=== PATIENT | male | born 1940 | race Caucasian/White ===

== ENCOUNTER 2018-10-28 12:11 | Inpatient (IN) | payer MEDICARE, BC ==
[2018-10-28 14:18] LABS: Glucose,Whole Blood 122 mg/dL (75-99)
[2018-10-28] MEDS ORDERED: NALOXONE 0.4 MG/ML 1 ML VIAL IV PRN (14:34)
[2018-10-28] MEDS ORDERED: SODIUM CHLORIDE 0.9% 1,000 ML IV SCH (14:45)
[2018-10-28] MEDS ORDERED: DEXTROSE 5% IN WATER 100 ML with AMIODARONE 150 MG IV ONE (14:45)
[2018-10-28] MEDS ORDERED: AMIODARONE 360 MG in DEXTROSE 5% IN WATER 200 ML IV ONE ×2 (15:00)
[2018-10-28 15:29] VITALS: BMI 26.5
[2018-10-28] MEDS ORDERED: LORATADINE 10 MG TAB PO PRN (17:02)
--- NOTE | 2018-10-28 17:04 | P.PCN ---
Preoperative Diagnosis: Biventricular ICD interrogation with reprogramming Indication for the procedure sustained ventricular tachycardia 140 beats a minute below the detection rate for VT [employer] device model G447 biventricular ICD P waves 2 mV pacing impedance 620 ohms, pacing threshold 1 V at 0.4 ms RV is paced, 529 ohms, pacing threshold 0.7 V at 0.4 ms LV is paced, pacing impedance 549 ohms, threshold 1.2 V at 1 ms Patient had slow ventricular tachycardia between 130 240 beats a minute Palatal ICD tachycardia therapies was reprogrammed VT 1 zone at 1:30 beats a minute with antitachycardia pacing only VT to at 175 beats a minute with antitachycardia pacing followed by cardioversions VF zone with antitachycardia pacing during charging followed by defibrillation starting at 41 J Plan Continue IV amiodarone Add mexiletine Consider VT ablation
[2018-10-28 17:05] LABS: Glucose,Whole Blood 123 mg/dL (75-99)
[2018-10-28 17:11] LABS: Albumin 3.9 g/dL (3.5-5.0); Total Bilirubin 0.5 mg/dL (0.2-1.3)
[2018-10-28] MEDS: INSULIN ASPART (NovoLOG) 100 UNIT/ML VIAL SQ SCH ×2 (17:33→22:04)
[2018-10-28] MEDS: PANTOPRAZOLE 40 MG/10 ML VIAL IVP SCH (17:37)
[2018-10-28] MEDS: MEXILETINE 150 MG CAP PO SCH (17:38)
[2018-10-28 18:04] LABS: INR 2.6 (<1.2); Prothrombin Time 25.3 sec (9.0-12.0)
--- NOTE | 2018-10-28 18:12 | ECHOF ---
Referral Reason:LV funtion MEASUREMENTS -------- HEIGHT: 177.8 cm WEIGHT: 83.5 kg BP: 124/70 IVSd: 1.3 cm (0.6 - 1.1) LVIDd: 4.7 cm (3.9 - 5.3) LVPWd: 1.2 cm (0.6 - 1.1) IVSs: 1.6 cm LVIDs: 3.9 cm LVPWs: 1.6 cm LA Diam: 4.2 cm (2.7 - 3.8) RVIDd: 3.0 cm (< 3.3) LAESV Index (A-L): 32.68 ml/m Ao Diam: 3.2 cm (2.0 - 3.7) AV Cusp: 1.7 cm (1.5 - 2.6) EPSS: 1.5 cm MV E Leandro: 1.08 m/s MV DecT: 155 ms MV A Leandro: 0.60 m/s MV E/A Ratio: 1.79 AR PHT: 515 ms RAP: 5.00 mmHg RVSP: 51.98 mmHg MV EF SLOPE: 62.06 mm/s (70 - 150) MV EXCURSION: 14.32 mm (> 18.000) FINDINGS -------- Paced rhythm. This was a technically good study. The left ventricular size is normal. There is mild concentric left ventricular hypertrophy. Overa ll left ventricular systolic function is severely impaired with, an EF between 25 - 30 %. INFERIOR A ND SEPTAL AKINESIS The right ventricle is normal in size. LA is midly dilated 29-33ml/m2. The right atrium is normal in size. Interatrial and interventricular septum intact. There is mild aortic valve sclerosis. There is mild aortic regurgitation. Mild mitral annular calcification present. Csxsgxes-ob-codxyl mitral regurgitation is present. Mild tricuspid regurgitation present. There is moderate pulmonary hypertension. The right ventric ular systolic pressure, as measured by Doppler, is 51.98mmHg. Trace/mild (physiologic) pulmonic regurgitation. The aortic root size is normal. Normal inferior vena cava with normal inspiratory collapse consistent with estimated right atrial pre ssure of 5 mmHg. There is no pericardial effusion. CONCLUSIONS -------- 1. Paced rhythm. 2. This was a technically good study. 3. The left ventricular size is normal. 4. There is mild concentric left ventricular hypertrophy. 5. Overall left ventricular systolic function is severely impaired with, an EF between 25 - 30 %. 6. The right ventricle is normal in size. 7. LA is midly dilated 29-33ml/m2. 8. The right atrium is normal in size. 9. Interatrial and interventricular septum intact. 10. There is mild aortic valve sclerosis. 11. There is mild aortic regurgitation. 12. Mild mitral annular calcification present. 13. Zivwfgyz-fd-kxizqa mitral regurgitation is present. 14. Mild tricuspid regurgitation present. 15. There is moderate pulmonary hypertension. 16. The right ventricular systolic pressure, as measured by Doppler, is 51.98mmHg. 17. Trace/mild (physiologic) pulmonic regurgitation. 18. The aortic root size is normal. 19. Normal inferior vena cava with normal inspiratory collapse consistent with estimated right atrial pressure of 5 mmHg. 20. There is no pericardial effusion. [employer]: Michelle Montana RDCS
[2018-10-28] MEDS ORDERED: ACYCLOVIR 200 MG CAP PO SCH (21:00)
[2018-10-28] MEDS ORDERED: FAMOTIDINE 20 MG/2 ML VIAL IV SCH (21:00)
[2018-10-28] MEDS ORDERED: FUROSEMIDE 20 MG TAB PO SCH (21:00)
[2018-10-28] MEDS ORDERED: ATORVASTATIN 10 MG TAB PO SCH (21:00)
[2018-10-28 21:19] LABS: Glucose,Whole Blood 116 mg/dL (75-99)
[2018-10-28] MEDS: ALLOPURINOL 100 MG TAB PO SCH (22:14)
[2018-10-28] MEDS: METOPROLOL TARTRATE 25 MG TAB PO SCH (22:14)
[2018-10-28] MEDS: WARFARIN 1.25 MG TAB PO SCH (22:15)
[2018-10-29] MEDS: MEXILETINE 150 MG CAP PO SCH ×4 (00:12→23:33)
[2018-10-29 05:57] LABS: Basophils # (A) 0.1 k/uL (0-0.2); Basophils % (A) 1 %; Eosinophils # (A) 0.4 k/uL (0-0.7); Eosinophils % (A) 4 %; HCT 43.4 % (39.0-53.0); HGB 14.2 gm/dL (13.0-17.5); Lymphocytes # (A) 0.6 k/uL (1.0-4.8); Lymphocytes % (A) 6 %; MCH 32.8 pg (25.0-35.0); MCHC 32.7 g/dL (31.0-37.0); MCV 100.5 fL (80.0-100.0); Macrocytosis Slight; Mean Platelet Volume 7.9; Monocytes # (A) 0.6 k/uL (0-1.0); Monocytes % (A) 7 %; Neutrophils # (A) 7.5 k/uL (1.3-7.7); Neutrophils % (A) 82 %; Platelet Count 169 k/uL (150-450); RBC 4.32 m/uL (4.30-5.90); WBC 9.2 k/uL (3.8-10.6)
[2018-10-29 06:06] LABS: INR 2.7 (<1.2); Prothrombin Time 26.4 sec (9.0-12.0)
[2018-10-29 06:14] LABS: Calcium 8.9 mg/dL (8.4-10.2)
[2018-10-29 06:46] LABS: Potassium 5.5 mmol/L (3.5-5.1)
[2018-10-29 07:07] LABS: Glucose,Whole Blood 124 mg/dL (75-99)
[2018-10-29] MEDS: INSULIN ASPART (NovoLOG) 100 UNIT/ML VIAL SQ SCH ×4 (07:08→20:28)
--- NOTE | 2018-10-29 07:58 | P.PN ---
Subjective Progress Note Date: 10/29/18 Principal diagnosis: Sustained V. tach This is a 78-year-old gentleman who sees Dr. Galaviz in the office on a regular basis was admitted to [facility] because he was not feeling well. He was feeling dizzy and lightheaded. He was seen over there by Dr. Porter who diagnosed the patient with sustained ventricular tachycardia. Subsequently the patient was transferred to [facility] for further evaluation. The patient does have history of coronary artery disease with a prior stenting and also history of cardiomyopathy and he is status post bi-V AI CD. The echocardiogram during this admission revealed severe cardiomyopathy with EF between 25-30%. The patient underwent reprogramming of the biopsy ICD yesterday and currently he has bi-V pacing. Also he was started on amiodarone as well as mexiletine. Since then he has been doing well. He was seen and evaluated yesterday by Dr. Shafer. Objective - Vital Signs Vital signs: Vital Signs Temp 98.6 F 10/29/18 00:00 Pulse 70 10/29/18 07:00 Resp 14 10/29/18 07:00 BP 126/76 10/29/18 07:00 Pulse Ox 92 L 10/29/18 07:00 Intake & Output 10/28/18 10/29/18 10/29/18 18:59 06:59 18:59 Intake Total 250 883 33 Output Total 400 1475 Balance -150 -592 33 Weight 83.8 kg 86.9 kg Intake: IV 250 883 33 Amiodarone 360 mg In 333 33 Dextrose 5% in Water 200 ml @ 1 MG/MIN 33.333 mls/ hr IV .Q6H ONE Rx#: [id number] Sodium Chloride 0.9% 1, 250 550 000 ml @ 50 mls/hr IV . Q20H [facility] [place] Rx#:[id number] Output: Urine 400 1475 Other: Voiding Method Toilet Urinal # Voids 1 1 - Constitutional General appearance: Present: no acute distress - Respiratory Respiratory: bilateral: CTA - Cardiovascular Rhythm: regular Heart sounds: normal: S1, S2 - Labs CBC & Chem 7: 10/29/18 05:41 10/29/18 05:41 Labs: Abnormal Lab Results - Last 24 Hours (Table) 10/28/18 10/28/18 10/28/18 Range/Units 14:05 16:46 17:02 MCV (80.0-100.0) fL RDW (11.5-15.5) % Lymphocytes # (1.0-4.8) k/uL PT (9.0-12.0) sec INR (<1.2) Sodium 136 L (137-145) mmol/L Potassium (3.5-5.1) mmol/L BUN 46 H (9-20) mg/dL Creatinine 1.35 H (0.66-1.25) mg/dL Glucose 111 H (74-99) mg/dL POC Glucose (mg/dL) 122 H 123 H (75-99) mg/dL ALT 17 L (21-72) U/L 10/28/18 10/28/18 10/29/18 Range/Units 17:24 20:42 05:41 MCV 100.5 H (80.0-100.0) fL RDW 16.0 H (11.5-15.5) % Lymphocytes # 0.6 L (1.0-4.8) k/uL PT 25.3 H (9.0-12.0) sec INR 2.6 H (<1.2) Sodium (137-145) mmol/L Potassium (3.5-5.1) mmol/L BUN (9-20) mg/dL Creatinine (0.66-1.25) mg/dL Glucose (74-99) mg/dL POC Glucose (mg/dL) 116 H (75-99) mg/dL ALT (21-72) U/L 10/29/18 10/29/18 10/29/18 Range/Units 05:41 05:41 07:05 MCV (80.0-100.0) fL RDW (11.5-15.5) % Lymphocytes # (1.0-4.8) k/uL PT 26.4 H (9.0-12.0) sec INR 2.7 H (<1.2) Sodium (137-145) mmol/L Potassium 5.5 H (3.5-5.1) mmol/L BUN 41 H (9-20) mg/dL Creatinine (0.66-1.25) mg/dL Glucose 117 H (74-99) mg/dL POC Glucose (mg/dL) 124 H (75-99) mg/dL ALT (21-72) U/L Assessment and Plan Assessment: Assessment #1 sustained ventricular tachycardia #2 known cardiomyopathy #3 status post by the ICD Plan #1 continue the current medical regimen including amiodarone and mexiletine #2 continue beta jair with metoprolol #3 follow-up with the patient
[2018-10-29] MEDS ORDERED: AMIODARONE 360 MG in DEXTROSE 5% IN WATER 200 ML IV ONE ×2 (08:12)
[2018-10-29] MEDS ORDERED: NON-FORMULARY DRUG (Ubidecarenone [Coq-10] 100 MG) PO SCH (09:00)
[2018-10-29] MEDS: ALLOPURINOL 100 MG TAB PO SCH ×2 (09:17→20:30)
[2018-10-29] MEDS: FUROSEMIDE 20 MG TAB PO SCH ×2 (09:18→16:28)
[2018-10-29] MEDS: ASPIRIN 81 MG PO SCH (09:18)
[2018-10-29] MEDS: METOPROLOL TARTRATE 25 MG TAB PO SCH ×2 (09:20→20:30)
[2018-10-29] MEDS: PANTOPRAZOLE 40 MG/10 ML VIAL IVP SCH (09:20)
--- NOTE | 2018-10-29 09:21 | P.CNPUL ---
History of Present Illness Consult date: 10/29/18 Reason for consult: dyspnea Chief complaint: Episode of palpitation and near syncope History of present illness: 78-year-old male with the history of smoking in the remote past is stable came into the hospital at [facility] for dizziness of sudden onset found to have ventricular tachycardia she has a history of snoring and apneic events but The sleep study, he has some shortness of breath but improved now denies any chest pain currently he is being treated with monitoring of ventricular tachycardia his the AICD have been readjusted and he is on mexiletine, review of the data revealed that patient does have history of coronary artery disease with a prior stenting and also history of cardiomyopathy and he is status post bi-V AICD. The echocardiogram during this admission revealed severe cardiomy opathy with EF between 25-30%. The patient underwent reprogramming of the biopsy ICD yesterday and currently he has bi-V pacing. Also he was started on amiodarone as well as mexiletine. Since then he has been doing well. He was seen and evaluated yesterday by Dr. Shafer. Review of Systems All systems: negative Past Medical History Past Medical History: Atrial Fibrillation, Coronary Artery Disease (CAD), Cancer, Heart Failure, Diabetes Mellitus, GERD/Reflux, Hyperlipidemia, Hypertension, Myocardial Infarction ([place]), Renal Disease, Skin Disorder, Syncope Additional Past Medical History / Comment(s): Melanoma on face, nose and left arm, CKD stage III, Last Myocardial Infarction Date:: 1998 History of Any Multi-Drug Resistant Organisms: None Reported Past Surgical History: Ablation, AICD, Cholecystectomy, Coronary Bypass/CABG, Heart Catheterization With Stent, Hernia Repair, Pacemaker Additional Past Surgical History / Comment(s): CABG with Dr. Rivera in 1998 Past Anesthesia/Blood Transfusion Reactions: No Reported Reaction Date of Last Stent Placement:: 1998 Type of Cardiac Device: AICD Device Placement Date:: 08/17/2014 Smoking Status: Former smoker - Past Family History Father History Unknown: Yes Family Medical History: Congestive Heart Failure (CHF), Coronary Artery Disease (CAD), Myocardial Infarction ([place]) Mother History Unknown: Yes Family Medical History: Coronary Artery Disease (CAD), Skin Disorder Medications and Allergies Home Medications Medication Instructions Recorded Confirmed Type Allopurinol [Zyloprim] 100 mg PO BID 11/25/13 10/28/18 History Aspirin EC [Ecotrin] 81 mg PO DAILY 11/25/13 10/28/18 History Furosemide [Lasix] 20 mg PO BID 11/25/13 10/28/18 History Loratadine [Claritin] 10 mg PO DAILY PRN 11/25/13 10/28/18 History Ubidecarenone [Coq-10] 100 mg PO DAILY 11/25/13 10/28/18 History Warfarin [Coumadin] 2.5 mg PO TUFR 11/25/13 10/28/18 History Difluprednate [Durezol] 1 drop LEFT EYE Q48H 10/28/18 10/28/18 History Lisinopril [Zestril] 5 mg PO DAILY 10/28/18 10/28/18 History Metoprolol Tartrate [Lopressor] 25 mg PO HS 10/28/18 10/28/18 History Metoprolol Tartrate [Lopressor] 50 mg PO QAM 10/28/18 10/28/18 History Simvastatin [Zocor] 20 mg PO HS 10/28/18 10/28/18 History Warfarin [Coumadin] 1.25 mg PO SUMOWETHSA 10/28/18 10/28/18 History Allergies Allergy/AdvReac Type Severity Reaction Status Date / Time codeine Allergy Rash/Hives Verified 10/28/18 14:53 Penicillins Allergy Unknown Verified 10/28/18 14:53 Childhood Physical Exam Vitals: Vital Signs Temp Pulse Resp BP Pulse Ox 10/29/18 07:00 70 14 126/76 92 L 10/29/18 06:00 70 23 122/67 90 L 10/29/18 05:00 70 21 125/60 94 L 10/29/18 04:00 70 20 127/60 94 L 10/29/18 03:00 70 13 127/60 95 10/29/18 02:00 70 18 126/67 94 L 10/29/18 01:00 68 20 115/60 94 L 10/29/18 00:00 98.6 F 70 21 121/68 95 10/28/18 23:00 70 22 128/75 91 L 10/28/18 22:00 70 16 135/78 95 10/28/18 21:00 69 23 144/83 97 10/28/18 20:00 98.6 F 75 23 130/79 90 L 10/28/18 19:00 70 17 130/79 97 10/28/18 18:00 13 122/78 97 10/28/18 17:15 15 112/68 95 10/28/18 17:00 23 133/75 96 10/28/18 16:45 89 22 124/70 96 10/28/18 16:30 6 L 118/72 96 10/28/18 16:15 112 H 33 H 121/74 96 10/28/18 16:00 16 113/65 96 10/28/18 15:45 121 H 15 120/54 96 10/28/18 15:30 20 110/70 97 10/28/18 15:15 103 H 12 105/72 95 10/28/18 15:00 108 H 19 99/70 96 10/28/18 14:45 70 20 99/70 96 10/28/18 14:30 137 H 16 100/82 96 10/28/18 14:15 138 H 18 100/82 97 10/28/18 14:01 142 H 28 H 83/69 98 Intake and Output 10/28/18 10/29/18 10/29/18 22:59 06:59 14:59 Intake Total 466 617 33 Output Total 300 1175 Balance 166 -558 33 Intake: IV 466 617 33 Amiodarone 360 mg In 66 267 33 Dextrose 5% in Water 200 ml @ 1 MG/MIN 33.333 mls/ hr IV .Q6H [facility] Rx#: [id number] Sodium Chloride 0.9% 1, 400 350 000 ml @ 50 mls/hr IV . Q20H [facility] Rx#:[id number] Output: Urine 300 1175 Other: Voiding Method Toilet Urinal # Voids 1 Weight 86.9 kg - Constitutional General appearance: average body habitus, disheveled, mild distress - EENT Eyes: EOMI, PERRLA, poor dentition, normal appearance Ears: bilateral: normal - Neck Neck: normal ROM Carotids: bilateral: upstroke normal Thyroid: bilateral: normal size - Respiratory Respiratory: bilateral: CTA - Cardiovascular Rhythm: regular Heart sounds: normal: S1, S2 - Gastrointestinal General gastrointestinal: soft - Integumentary Integumentary: normal, normal turgor - Neurologic Neurologic: CNII-XII intact - Musculoskeletal Musculoskeletal: gait normal, generalized weakness, strength equal bilaterally - Psychiatric Psychiatric: A&O x's 3, appropriate affect, intact judgment & insight Results - Laboratory Findings CBC and BMP: 10/29/18 05:41 10/29/18 05:41 PT/INR, D-dimer PT 26.4 sec (9.0-12.0) H 10/29/18 05:41 INR 2.7 (<1.2) H 10/29/18 05:41 Abnormal lab findings: Abnormal Labs 10/28/18 10/28/18 10/28/18 14:05 16:46 17:02 MCV RDW Lymphocytes # PT INR Sodium 136 L Potassium BUN 46 H Creatinine 1.35 H Glucose 111 H POC Glucose (mg/dL) 122 H 123 H ALT 17 L 10/28/18 10/28/18 10/29/18 17:24 20:42 05:41 MCV 100.5 H RDW 16.0 H Lymphocytes # 0.6 L PT 25.3 H INR 2.6 H Sodium Potassium BUN Creatinine Glucose POC Glucose (mg/dL) 116 H ALT 10/29/18 10/29/18 10/29/18 05:41 05:41 07:05 MCV RDW Lymphocytes # PT 26.4 H INR 2.7 H Sodium Potassium 5.5 H BUN 41 H Creatinine Glucose 117 H POC Glucose (mg/dL) 124 H ALT Assessment and Plan Assessment: COPD, stable at this point Obstructive sleep apnea patient does not want sleep study Sustained ventricular tachycardia status post readjustment of AICD with antiarrhythmic agents being monitored closely for any arrhythmia Cardiomyopathy chronic systolic ejection fraction 25% Hypertension hypertensive cardiovascular disease Dyslipidemia Chronic systolic heart failure Plan: Observe patient off of breathing treatment Deep breathing exercises incentive spirometry Increase activity as tolerated and recommended Observe closely Patient can be downgraded to selective care Further recommendations pending plan of care as per clinical response that patient Time with Patient: Greater than 30
--- NOTE | 2018-10-29 10:45 | P.CRDCN ---
History of Present Illness History of present illness: This is Jasymne Larose PA-C dictating an EP consult on this patient The patient was interviewed and examined by me as well as by Dr. Shafer Case discussed with Dr. Shafer and he agrees with the plan of care IMPRESSION / ASSESSMENT: Sustained ventricular tachycardia with a right bundle branch like morphology with Q waves in inferiorly and in V6, likely coming from the left ventricle with an inferior apical exit Ischemic cardiomyopathy status post biventricular ICD Chronic systolic heart failure, EF 25-30%, patient fairly stable from a heart failure symptom standpoint CAD status post CABG Permanent atrial fibrillation, anticoagulated with Coumadin Hypertension, blood pressure has been stable Dyslipidemia, patient intolerant to atorvastatin due to muscle aches Hyperkalemia, Иван inhibitors on hold PLAN: Repeat potassium Stop IV amiodarone and start oral amiodarone 400 mg twice a day Continue mexiletine Continue beta blockers, switch to long-acting beta blockers tomorrow Maximize heart failure medications as tolerated Discontinue atorvastatin, Start Pravachol 40 mg daily Obtain records from [facility] in [place] as well as [facility] in [place], patient will bring them for us tomorrow If patient remains stable and does not have any more episodes of VT, he may be discharged on Thursday Likely plan for VT ablation within the next few weeks HPI Patient is a 78-year-old male with a past medical history of hypertension, dyslipidemia, CAD status post CABG, and ischemic cardiomyopathy status post biventricular ICD placement who was transferred here from [facility]. Patient had an ICD placed for ischemic cardiomyopathy several years ago and underwent a ventricular fibrillation ablation and subsequent upgrade to biventricular ICD a few years back in [place]. two days ago, he woke up around 3 AM to use the bathroom and after having a bowel movement he broke out into a sweat. He denies associated chest pain, shortness of breath, palpitations, dizziness, lightheadedness or syncope. He called EMS and was taken to [facility] for evaluation. He was found to have ventricular tachycardia and was transferred to [facility] for further evaluation. His EKG revealed ventricular tachycardia with a right bundle branch like morphology with Q waves in inferiorly and in V6. Echocardiogram revealed severely impaired ventricular systolic function, EF 25-30%. He was started on IV amiodarone and mexiletine. His ICD was reprogrammed to lower the VT detection zone. EKG today shows biventricular paced rhythm, underlying atrial fibrillation. Patient seen and examined resting comfortably in bed. He is feeling well and has not had any further episodes. Denies chest pain, palpitations, shortness of breath, di zziness, lightheadedness. Denies orthopnea, PND or lower extremity edema. ROS: No fevers, chills or rigors, no cough, phlegm or expectoration, no nausea, vomiting or diarrhea, no hematuria, dysuria, no musculoskeletal complaints, no strokes or seizures, no skin lesions. EXAMINATION: Patient is afebrile, pulse 70, respirations 14, blood pressure 126/76, oxygen saturation 92% on room air Patient seen and examined resting comfortably in bed, in no acute distress Lungs clear to auscultation bilaterally Heart is regular, systolic murmur appreciated at the apex No elevated JVD No lower extremity edema Abdomen soft REVIEW OF LABS, ECG & MEDICAL DATA WBC 9.2, hemoglobin 14.4, platelets 169, potassium 5.5, BUN 41, creatinine 1.17 TSH within normal limits Echocardiogram showed LV systolic function severely impaired, EF 25-30%, moderate to severe mitral regurgitation Initial His EKG revealed ventricular tachycardia with a right bundle branch like morphology with Q waves in inferiorly and in V6, repeat EKG today showed biventricular paced rhythm, underlying atrial fibrillation Negative VQ scan at [facility] Past Medical History Past Medical History: Atrial Fibrillation, Coronary Artery Disease (CAD), Cancer, Heart Failure, Diabetes Mellitus, GERD/Reflux, Hyperlipidemia, Hypertension, Myocardial Infarction ([place]), Renal Disease, Skin Disorder, Syncope Additional Past Medical History / Comment(s): Melanoma on face, nose and left arm, CKD stage III, Last Myocardial Infarction Date:: 1998 History of Any Multi-Drug Resistant Organisms: None Reported Past Surgical History: Ablation, AICD, Cholecystectomy, Coronary Bypass/CABG, Heart Catheterization With Stent, Hernia Repair, Pacemaker Additional Past Surgical History / Comment(s): CABG with Dr. Rivera in 1998 Past Anesthesia/Blood Transfusion Reactions: No Reported Reaction Date of Last Stent Placement:: 1998 Type of Cardiac Device: AICD Device Placement Date:: 08/17/2014 Smoking Status: Former smoker - Past Family History Father History Unknown: Yes Family Medical History: Congestive Heart Failure (CHF), Coronary Artery Disease (CAD), Myocardial Infarction ([place]) Mother History Unknown: Yes Family Medical History: Coronary Artery Disease (CAD), Skin Disorder Medications and Allergies Home Medications Medication Instructions Recorded Confirmed Type Allopurinol [Zyloprim] 100 mg PO BID 11/25/13 10/28/18 History Aspirin EC [Ecotrin] 81 mg PO DAILY 11/25/13 10/28/18 History Furosemide [Lasix] 20 mg PO BID 11/25/13 10/28/18 History Loratadine [Claritin] 10 mg PO DAILY PRN 11/25/13 10/28/18 History Ubidecarenone [Coq-10] 100 mg PO DAILY 11/25/13 10/28/18 History Warfarin [Coumadin] 2.5 mg PO TUFR 11/25/13 10/28/18 History Difluprednate [Durezol] 1 drop LEFT EYE Q48H 10/28/18 10/28/18 History Lisinopril [Zestril] 5 mg PO DAILY 10/28/18 10/28/18 History Metoprolol Tartrate [Lopressor] 25 mg PO HS 10/28/18 10/28/18 History Metoprolol Tartrate [Lopressor] 50 mg PO QAM 10/28/18 10/28/18 History Simvastatin [Zocor] 20 mg PO HS 10/28/18 10/28/18 History Warfarin [Coumadin] 1.25 mg PO SUMOWETHSA 10/28/18 10/28/18 History Allergies Allergy/AdvReac Type Severity Reaction Status Date / Time codeine Allergy Rash/Hives Verified 10/28/18 14:53 Penicillins Allergy Unknown Verified 10/28/18 14:53 Childhood Physical Exam Vitals: Vital Signs Temp Pulse Resp BP Pulse Ox 10/29/18 07:00 70 14 126/76 92 L 10/29/18 06:00 70 23 122/67 90 L 10/29/18 05:00 70 21 125/60 94 L 10/29/18 04:00 70 20 127/60 94 L 10/29/18 03:00 70 13 127/60 95 10/29/18 02:00 70 18 126/67 94 L 10/29/18 01:00 68 20 115/60 94 L 10/29/18 00:00 98.6 F 70 21 121/68 95 10/28/18 23:00 70 22 128/75 91 L 10/28/18 22:00 70 16 135/78 95 10/28/18 21:00 69 23 144/83 97 10/28/18 20:00 98.6 F 75 23 130/79 90 L 10/28/18 19:00 70 17 130/79 97 10/28/18 18:00 13 122/78 97 10/28/18 17:15 15 112/68 95 10/28/18 17:00 23 133/75 96 10/28/18 16:45 89 22 124/70 96 10/28/18 16:30 6 L 118/72 96 10/28/18 16:15 112 H 33 H 121/74 96 10/28/18 16:00 16 113/65 96 10/28/18 15:45 121 H 15 120/54 96 10/28/18 15:30 20 110/70 97 10/28/18 15:15 103 H 12 105/72 95 10/28/18 15:00 108 H 19 99/70 96 10/28/18 14:45 70 20 99/70 96 10/28/18 14:30 137 H 16 100/82 96 10/28/18 14:15 138 H 18 100/82 97 10/28/18 14:01 142 H 28 H 83/69 98 Intake and Output 10/28/18 10/29/18 10/29/18 22:59 06:59 14:59 Intake Total 466 617 33 Output Total 300 1175 Balance 166 -558 33 Intake: IV 466 617 33 Amiodarone 360 mg In 66 267 33 Dextrose 5% in Water 200 ml @ 1 MG/MIN 33.333 mls/ hr IV .Q6H [facility] Rx#: [id number] Sodium Chloride 0.9% 1, 400 350 000 ml @ 50 mls/hr IV . Q20H [facility] Rx#:[id number] Output: Urine 300 1175 Other: Voiding Method Toilet Urinal # Voids 1 Weight 86.9 kg Results 10/29/18 05:41 10/29/18 09:34 Cardiac Enzymes 10/28/18 Range/Units 16:46 AST 34 (17-59) U/L Coagulation 10/28/18 10/29/18 Range/Units 17:24 05:41 PT 25.3 H 26.4 H (9.0-12.0) sec CBC 10/29/18 Range/Units 05:41 WBC 9.2 (3.8-10.6) k/uL RBC 4.32 (4.30-5.90) m/uL Hgb 14.2 (13.0-17.5) gm/dL Hct 43.4 (39.0-53.0) % Plt Count 169 (150-450) k/uL Comprehensive Metabolic Panel 10/28/18 10/29/18 10/29/18 Range/Units 16:46 05:41 09:34 Sodium 136 L 137 (137-145) mmol/L Potassium 4.0 5.5 H 4.7 (3.5-5.1) mmol/L Chloride 100 105 (98-107) mmol/L Carbon Dioxide 26 25 (22-30) mmol/L BUN 46 H 41 H (9-20) mg/dL Creatinine 1.35 H 1.17 (0.66-1.25) mg/dL Glucose 111 H 117 H (74-99) mg/dL Calcium 9.0 8.9 (8.4-10.2) mg/dL AST 34 (17-59) U/L ALT 17 L (21-72) U/L Alkaline Phosphatase 92 (38-126) U/L Total Protein 7.0 (6.3-8.2) g/dL Albumin 3.9 (3.5-5.0) g/dL Current Medications Generic Name Dose Route Start Last Admin Trade Name Freq PRN Reason Stop Dose Admin Allopurinol 100 mg 10/28/18 21:00 10/29/18 09:17 Zyloprim PO 100 mg BID PAIGE Administration Amiodarone HCl 400 mg 10/29/18 10:00 Cordarone PO BID PAIGE Aspirin 81 mg 10/29/18 09:00 10/29/18 09:18 Aspirin PO 81 mg DAILY PAIGE Administration Furosemide 20 mg 10/29/18 09:00 10/29/18 09:18 Lasix PO 20 mg BID@0800,1400 PA[facility]E Administration Insulin Aspart 0 unit 10/28/18 17:30 10/29/18 07:08 Novolog SQ Not Given ACHS [facility] Protocol Loratadine 10 mg 10/28/18 17:02 Claritin PO DAILY PRN Allergy Symptoms Metoprolol Tartrate 25 mg 10/28/18 21:00 10/29/18 09:20 Lopressor PO 25 mg BID PAIGE Administration Mexiletine HCl 150 mg 10/28/18 16:30 10/29/18 09:17 Mexitil PO 150 mg Q8HR [facility] Administration Naloxone HCl 0.2 mg 10/28/18 14:34 Narcan IV Q2M PRN Opioid Reversal Non-Formulary Medication 1 drop 10/29/18 09:00 Difluprednate [Durezol] LEFT EYE Q48H [facility] Pantoprazole Sodium 40 mg 10/28/18 15:00 10/29/18 09:20 Protonix IVP 40 mg DAILY PAIGE Administration Pravastatin Sodium 40 mg 10/29/18 21:00 Pravachol PO HS [facility] Warfarin Sodium 1.25 mg 10/28/18 19:00 10/28/18 22:15 Coumadin PO 1.25 mg [id number] PAIGE Administration Warfarin Sodium 2.5 mg 10/29/18 18:00 Coumadin PO TUFR [facility] Intake and Output 10/28/18 10/29/18 10/29/18 22:59 06:59 14:59 Intake Total 466 617 33 Output Total 300 1175 Balance 166 -558 33 Intake: IV 466 617 33 Amiodarone 360 mg In 66 267 33 Dextrose 5% in Water 200 ml @ 1 MG/MIN 33.333 mls/ hr IV .Q6H [facility] Rx#: [id number] Sodium Chloride 0.9% 1, 400 350 000 ml @ 50 mls/hr IV . Q20H [facility] Rx#:[id number] Output: Urine 300 1175 Other: Voiding Method Toilet Urinal # Voids 1 Weight 86.9 kg 10/29/18 05:41 10/29/18 09:34
[2018-10-29 11:58] LABS: Glucose,Whole Blood 125 mg/dL (75-99)
[2018-10-29] MEDS: AMIODARONE 200 MG TAB PO SCH ×2 (12:33→20:30)
[2018-10-29] MEDS: DIFLUPREDNATE LEFT EYE SCH (12:42)
--- NOTE | 2018-10-29 13:10 | HP ---
HISTORY AND PHYSICAL CHIEF COMPLAINT: This is a 78-year-old white male who I transferred from [facility] to [facility] due to ventricular tachycardia and AICD device interrogation. He has chronic systolic failure, ejection fraction 25%-35%. He came to the hospital for weakness and dizziness. He has permanent atrial fibrillation. He is on blood thinners, Coumadin, hypertension, dyslipidemia, hyperkalemia for which DAMARIS inhibitors are on hold. He feels improved, but he feels he is getting poor care from nursing staff due to fights over his home medications. He is refusing to take Lipitor due to myalgias, apparently and the nursing staff took his medication discussed with the case with the electric relay tester was given, amiodarone as well as mexiletine for V. tach and maybe possibly to a VT ablation over the next few weeks, if ever, depending on how he does. MEDICATIONS REVIEW: A 14-point review of systems negative except for as mentioned in HPI. PHYSICAL EXAMINATION: Blood pressure 120s over 70s, O2 is 92% on room air, pulse 70, respiratory rate 12-14. CARDIOVASCULAR: S1, S2. LUNGS: Clear. GI: Soft. HEMATOLOGY: Negative Homans. PSYCH: Fair mood and affect. VASCULAR: Normal dorsalis pedis, posterior tibial pulse, GI soft. FAMILY HISTORY: Father CHF, coronary artery disease. Mother coronary disease, skin disorder. MEDICATIONS: Include lisinopril, Desyrel, Coumadin, Claritin, Lasix, Ecotrin, Zyloprim, mexiletine, amiodarone. ALLERGIES: PENICILLIN. LABS: Reviewed. ASSESSMENT: Ventricular tachycardia, atrial fibrillation, coronary artery disease, systolic CHF, diabetes mellitus, GERD, dyslipidemia, hypertension, myocardial infarction, renal disease, cardiomyopathy, AICD interrogation, right bundle branch block. Please see further orders. No atorvastatin will be given. He wants to go on the simvastatin Pravachol. Will start amiodarone orally off the IV per Cardiology today. Discussed case with Dr. Shafer, Dr. Michele. Possible discharge home up to Thursday or Morning depending on amiodarone response and mexiletine response. ICU note 60 minutes. MMODL / IJN: [id number] /
[2018-10-29 16:43] LABS: Glucose,Whole Blood 105 mg/dL (75-99)
[2018-10-29] MEDS ORDERED: WARFARIN 2.5 MG TAB PO SCH (18:00)
[2018-10-29 20:28] LABS: Glucose,Whole Blood 116 mg/dL (75-99)
[2018-10-29] MEDS: PRAVASTATIN SODIUM 40 MG TAB PO SCH (20:30)
[2018-10-30 06:34] LABS: Glucose,Whole Blood 106 mg/dL (75-99)
[2018-10-30 06:42] LABS: Basophils # (A) 0.1 k/uL (0-0.2); Basophils % (A) 1 %; Eosinophils # (A) 0.4 k/uL (0-0.7); Eosinophils % (A) 5 %; HCT 45.3 % (39.0-53.0); HGB 14.7 gm/dL (13.0-17.5); Lymphocytes # (A) 0.9 k/uL (1.0-4.8); Lymphocytes % (A) 12 %; MCH 32.8 pg (25.0-35.0); MCHC 32.5 g/dL (31.0-37.0); MCV 100.9 fL (80.0-100.0); Macrocytosis Slight; Mean Platelet Volume 7.6; Monocytes # (A) 0.7 k/uL (0-1.0); Monocytes % (A) 9 %; Neutrophils # (A) 5.4 k/uL (1.3-7.7); Neutrophils % (A) 72 %; Platelet Count 182 k/uL (150-450); RBC 4.49 m/uL (4.30-5.90); RDW 15.6 % (11.5-15.5); WBC 7.5 k/uL (3.8-10.6)
[2018-10-30 06:43] LABS: INR 3.3 (<1.2); Prothrombin Time 31.8 sec (9.0-12.0)
[2018-10-30] MEDS: INSULIN ASPART (NovoLOG) 100 UNIT/ML VIAL SQ SCH ×4 (06:47→20:55)
[2018-10-30] MEDS: PANTOPRAZOLE 40 MG TABLET PO SCH (06:47)
[2018-10-30 07:02] LABS: Calcium 9.1 mg/dL (8.4-10.2); Potassium 4.8 mmol/L (3.5-5.1)
[2018-10-30] MEDS: ALLOPURINOL 100 MG TAB PO SCH ×2 (08:28→19:59)
[2018-10-30] MEDS: FUROSEMIDE 20 MG TAB PO SCH ×2 (08:28→14:50)
[2018-10-30] MEDS: MEXILETINE 150 MG CAP PO SCH ×2 (08:28→14:50)
[2018-10-30] MEDS: METOPROLOL TARTRATE 25 MG TAB PO SCH ×2 (08:28→19:59)
[2018-10-30] MEDS: AMIODARONE 200 MG TAB PO SCH ×2 (08:28→19:59)
[2018-10-30] MEDS: ASPIRIN 81 MG PO SCH (08:28)
--- NOTE | 2018-10-30 11:05 | P.PN ---
Subjective Progress Note Date: 10/30/18 Principal diagnosis: COPD, stable at this point Obstructive sleep apnea patient does not want sleep study Sustained ventricular tachycardia status post readjustment of AICD with a ntiarrhythmic agents being monitored closely for any arrhythmia Cardiomyopathy chronic systolic ejection fraction 25% Hypertension hypertensive cardiovascular disease Dyslipidemia Chronic systolic heart failure 10/30/2018, patient seen and evaluated examined during the rounds patient is on monitored on telemetry bed for any arrhythmia currently patient is on amiodarone and mexiletine, denies any chest pain or shortness of breath breathing is stable still have intermittent snoring continued to refuse sleep study as outpatient hour agreeable for pulmonary evaluation 78-year-old male with the history of smoking in the remote past is stable came into the hospital at [facility] for dizziness of sudden onset found to have ventricular tachycardia she has a history of snoring and apneic events but The sleep study, he has some shortness of breath but improved now denies any chest pain currently he is being treated with monitoring of ventricular tachycardia his the AICD have been readjusted and he is on mexiletine, review of the data revealed that patient does have history of coronary artery disease with a prior stenting and also history of cardiomyopathy and he is status post bi-V AICD. The echocardiogram during this admission revealed severe cardiomyopathy with EF between 25-30%. The patient underwent reprogramming of the biopsy ICD yesterday and currently he has bi-V pacing. Also he was started on amiodarone as well as mexiletine. Since then he has been doing well. He was seen and evaluated yesterday by Dr. Shafer. Objective - Vital Signs Vital signs: Vital Signs Temp 98.2 F 10/30/18 08:00 Pulse 71 10/30/18 08:00 Resp 18 10/30/18 08:00 BP 132/67 10/30/18 08:00 Pulse Ox 97 10/30/18 08:00 Intake & Output 10/29/18 10/30/18 10/30/18 18:59 06:59 18:59 Intake Total 1431 360 Output Total 1050 Balance 381 360 Weight 79.2 kg Intake: IV 531 Amiodarone 360 mg In 231 Dextrose 5% in Water 200 ml @ 1 MG/MIN 33.333 mls/ hr IV .Q6H [facility] Rx#: [id number] Sodium Chloride 0.9% 1, 300 000 ml @ 50 mls/hr IV . Q20H [facility] Rx#:[id number] Oral 900 360 Output: Urine 1050 Other: Voiding Method Toilet - Exam - Constitutional General appearance: average body habitus, disheveled, mild distress - EENT Eyes: EOMI, PERRLA, poor dentition, normal appearance Ears: bilateral: normal - Neck Neck: normal ROM Carotids: bilateral: upstroke normal Thyroid: bilateral: normal size - Respiratory Respiratory: bilateral: CTA - Cardiovascular Rhythm: regular Heart sounds: normal: S1, S2 - Gastrointestinal General gastrointestinal: soft - Integumentary Integumentary: normal, normal turgor - Neurologic Neurologic: CNII-XII intact - Musculoskeletal Musculoskeletal: gait normal, generalized weakness, strength equal bilaterally - Psychiatric Psychiatric: A&O x's 3, appropriate affect, intact judgment & insight - Labs CBC & Chem 7: 10/30/18 06:23 10/30/18 06:23 Labs: Abnormal Lab Results - Last 24 Hours (Table) 10/29/18 10/29/18 10/29/18 Range/Units 11:55 16:41 20:26 MCV (80.0-100.0) fL RDW (11.5-15.5) % Lymphocytes # (1.0-4.8) k/uL PT (9.0-12.0) sec INR (<1.2) BUN (9-20) mg/dL Creatinine (0.66-1.25) mg/dL Glucose (74-99) mg/dL POC Glucose (mg/dL) 125 H 105 H 116 H (75-99) mg/dL 10/30/18 10/30/18 10/30/18 Range/Units 06:23 06:23 06:23 MCV 100.9 H (80.0-100.0) fL RDW 15.6 H (11.5-15.5) % Lymphocytes # 0.9 L (1.0-4.8) k/uL PT 31.8 H (9.0-12.0) sec INR 3.3 H (<1.2) BUN 35 H (9-20) mg/dL Creatinine 1.33 H (0.66-1.25) mg/dL Glucose 105 H (74-99) mg/dL POC Glucose (mg/dL) (75-99) mg/dL 10/30/18 Range/Units 06:33 MCV (80.0-100.0) fL RDW (11.5-15.5) % Lymphocytes # (1.0-4.8) k/uL PT (9.0-12.0) sec INR (<1.2) BUN (9-20) mg/dL Creatinine (0.66-1.25) mg/dL Glucose (74-99) mg/dL POC Glucose (mg/dL) 106 H (75-99) mg/dL Assessment and Plan Assessment: COPD, stable at this point Obstructive sleep apnea patient does not want sleep study Sustained ventricular tachycardia status post readjustment of AICD with antiarrhythmic agents being monitored closely for any arrhythmia Cardiomyopathy chronic systolic ejection fraction 25% Hypertension hypertensive cardiovascular disease Dyslipidemia Chronic systolic heart failure Plan: Observe patient off of breathing treatment Deep breathing exercises incentive spirometry Increase activity as tolerated and recommended Observe closely Patient downgraded to selective care, agree with discharge planning once cleared by cardiovascular services and follow-up on outpatient basis Further recommendations pending plan of care as per clinical response that patient Time with Patient: Greater than 30
[2018-10-30 12:10] LABS: Glucose,Whole Blood 111 mg/dL (75-99)
[2018-10-30] MEDS ORDERED: MAGNESIUM CITRATE 296 ML BOTTLE PO PRN (12:36)
[2018-10-30] MEDS ORDERED: ACYCLOVIR 200 MG CAP PO SCH (16:00)
[2018-10-30 17:00] LABS: Glucose,Whole Blood 121 mg/dL (75-99)
[2018-10-30] MEDS: WARFARIN 1.25 MG TAB PO SCH (17:22)
--- NOTE | 2018-10-30 17:40 | P.PN ---
Subjective Patient is doing well. No more arrhythmias. Maintains biventricular paced rhythm No chest discomfort was dizziness lightheadedness or undue shortness of breath. From a heart rate standpoint he is very well compensated On examination blood pressure 120/70 mmHg pulse rate in the 70s afebrile 97.8F Breath sounds are clear no rhonchi no crackles Normal heart sounds normal S1 normal S2 Abdomen soft nontender No JVD No lower 70 edema Femoral pulses are well palpable Impression Severe ischemic cardio myopathy with inferior septal akinesis with left ventricular ejection fraction less than 35% Ventricular tachycardia, slow and overlapping sinus tachycardia zone I reprogrammed the device was recommended he proceed with a diagnostic history of frequency ablation. He is able to lie flat in bed he is no orthopnea PND Underlying persistent A. fib On Thursday to get a PT/INR cc and a BMP I'm stopping Coumadin at this time for VT ablation I will have a detailed discussion regarding VT ablation in the plan during the ablation. He understands the pros and cons and risks and the issues with slow ventricular tachycardia when the rates overlap with sinus tachycardia rate His device has been interrogated and reprogrammed with a slow VT zone And reducing amiodarone to 200 mg twice daily Mexiletine will be held on Thursday Coumadin is already on hold Objective - Vital Signs Vital signs: Vital Signs Temp 97.9 F 10/30/18 16:00 Pulse 71 10/30/18 16:00 Resp 18 10/30/18 16:00 BP 132/65 10/30/18 16:00 Pulse Ox 98 10/30/18 16:00 Intake & Output 10/29/18 10/30/18 10/30/18 18:59 06:59 18:59 Intake Total 1431 720 Output Total 1050 Balance 381 720 Weight 79.2 kg Intake: IV 531 Amiodarone 360 mg In 231 Dextrose 5% in Water 200 ml @ 1 MG/MIN 33.333 mls/ hr IV .Q6H [facility] Rx#: [id number] Sodium Chloride 0.9% 1, 300 000 ml @ 50 mls/hr IV . Q20H [facility] Rx#:[id number] Oral 900 720 Output: Urine 1050 Other: Voiding Method Toilet # Voids 1 - Labs CBC & Chem 7: 10/30/18 06:23 10/30/18 06:23 Labs: Abnormal Lab Results - Last 24 Hours (Table) 10/29/18 10/30/18 10/30/18 Range/Units 20:26 06:23 06:23 MCV 100.9 H (80.0-100.0) fL RDW 15.6 H (11.5-15.5) % Lymphocytes # 0.9 L (1.0-4.8) k/uL PT 31.8 H (9.0-12.0) sec INR 3.3 H (<1.2) BUN (9-20) mg/dL Creatinine (0.66-1.25) mg/dL Glucose (74-99) mg/dL POC Glucose (mg/dL) 116 H (75-99) mg/dL 10/30/18 10/30/18 10/30/18 Range/Units 06:23 06:33 11:44 MCV (80.0-100.0) fL RDW (11.5-15.5) % Lymphocytes # (1.0-4.8) k/uL PT (9.0-12.0) sec INR (<1.2) BUN 35 H (9-20) mg/dL Creatinine 1.33 H (0.66-1.25) mg/dL Glucose 105 H (74-99) mg/dL POC Glucose (mg/dL) 106 H 111 H (75-99) mg/dL 10/30/18 Range/Units 16:58 MCV (80.0-100.0) fL RDW (11.5-15.5) % Lymphocytes # (1.0-4.8) k/uL PT (9.0-12.0) sec INR (<1.2) BUN (9-20) mg/dL Creatinine (0.66-1.25) mg/dL Glucose (74-99) mg/dL POC Glucose (mg/dL) 121 H (75-99) mg/dL
[2018-10-30] MEDS: PRAVASTATIN SODIUM 40 MG TAB PO SCH (19:59)
[2018-10-30 20:40] LABS: Glucose,Whole Blood 136 mg/dL (75-99)
[2018-10-31] MEDS: MEXILETINE 150 MG CAP PO SCH ×2 (00:03→08:09)
--- NOTE | 2018-10-31 00:15 | PN ---
PROGRESS NOTE Patient wants his home acyclovir reordered and magnesium citrate for constipation given. He has been started on simvastatin. He remains on IV amiodarone and is scheduled for cardiac ablation next Thursday, 3 days from now. Cardiovascular: S1, S2. Lungs clear. GI soft. Hematology negative Homans. Psych fair mood and affect. ASSESSMENT: 1. Ventricular tachycardia. 2. Coronary artery disease. 3. Hypertension. Continue current treatment. Amiodarone IV oral. Possible cardiac ablation due to severe bradycardia with amiodarone on Thursday. Continue current home medications. ICU time 20 minutes. MMODL / IJN: [id number] /
[2018-10-31 06:34] LABS: INR 3.4 (<1.2); Prothrombin Time 32.4 sec (9.0-12.0)
[2018-10-31] MEDS: PANTOPRAZOLE 40 MG TABLET PO SCH (06:56)
[2018-10-31 07:00] LABS: Glucose,Whole Blood 100 mg/dL (75-99)
[2018-10-31] MEDS: INSULIN ASPART (NovoLOG) 100 UNIT/ML VIAL SQ SCH ×2 (07:01→11:43)
[2018-10-31] MEDS: ASPIRIN 81 MG PO SCH (08:09)
[2018-10-31] MEDS: FUROSEMIDE 20 MG TAB PO SCH (08:09)
[2018-10-31] MEDS: ALLOPURINOL 100 MG TAB PO SCH (08:09)
[2018-10-31] MEDS: METOPROLOL TARTRATE 25 MG TAB PO SCH (08:09)
[2018-10-31] MEDS: AMIODARONE 200 MG TAB PO SCH (08:09)
[2018-10-31 08:41] VITALS: BP 143/74; PULSE 70; RESP 18; TEMP 97.3
[2018-10-31] MEDS: DIFLUPREDNATE LEFT EYE SCH (11:43)
--- NOTE | 2018-10-31 12:12 | P.PN ---
Progress Note - Text Patient interviewed and examined. Please see full dictation Old charts reviewed carefully Yesterday to the patient that he was scheduled for Thursday this week However was mistaken. The procedure has been scheduled for the Thursday of the following week I did tell the patient this He may go home from a cardiac standpoint on amiodarone 200 mg twice daily, mexiletine 150 g 3 times a day metoprolol and all his other cardiac medications I was asked him to reduce warfarin dose to 1.25 mg by mouth daily, since he is on amiodarone now He will stop warfarin next Thursday and Thursday along with mexiletine and amiodarone, for 2 days prior to the procedure Review of previous data History of cardio myopathy ejection fraction 45% with nonsustained ventricular tachycardia His cardiac risk in [place] referred him to the lateral human resources generalist A diagnostic EP study is performed 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 No ventricular arrhythmias no dizziness lightheadedness chest discomfort and no heart failure symptoms He looks very comfortable On examination he is afebrile 97.3F pulse rate in the 70s, blood pressure 143/74 mmHg Breath sounds are reduced bilaterally but there are no rhonchi no crackles Normal heart sounds normal S1 normal S2 Patient is biventricular paced No lower extremity edema Abdomen is soft nontender Impression and plan Ischemic cardiomyopathy with septal and inferior wall akinesis with reduced LV systolic function Stable CHF class II Sustained ventricular tachycardia requiring antitachycardia pacing Slow ventricular tachycardia at 1:30 beats a minute right bundle branch block with Q waves in the inferior leads and V6 consistent with an inferior apical exit from the left ventricle Bilateral ICD was interrogated and reprogrammed He was started on IV followed by oral amiodarone and mexiletine The dose of Coumadin was reduced since he has persistent atrial fibrillation He is being discharged home today and will come back for VT ablation on November 09. Instructions have been given His last set of labs are reviewed. Hemoglobin 14.7, platelet count 182,000 Normal electrolytes BUN 35 creatinine 1.33 TSH 4.25
== END 2018-10-31 12:39 | disposition home or self-care (01) | DRG 309 ==
LOC: 2SICU 13:28 → 3SCARD 10-29 17:42
PROVIDERS: ADMIT Family Medicine; ATTEND Family Medicine
PROC: 4B02XTZ Measurement of Cardiac Defibrillator, External Approach (ICD-10-PCS; principal; 2018-10-28)
DX: I47.2 Ventricular tachycardia (principal); I50.22 Chronic systolic (congestive) heart failure; I13.0 Hypertensive heart and chronic kidney disease with heart failure and stage 1 through stage 4 chronic kidney disease, or unspecified chronic kidney disease; K21.9 Gastro-esophageal reflux disease without esophagitis; I45.10 Unspecified right bundle-branch block; I25.5 Ischemic cardiomyopathy; I48.2 Chronic atrial fibrillation; N18.3 Chronic kidney disease, stage 3 (moderate); E11.22 Type 2 diabetes mellitus with diabetic chronic kidney disease; E78.5 Hyperlipidemia, unspecified; E87.5 Hyperkalemia; G47.33 Obstructive sleep apnea (adult) (pediatric); I25.10 Atherosclerotic heart disease of native coronary artery without angina pectoris; J44.9 Chronic obstructive pulmonary disease, unspecified; K59.00 Constipation, unspecified; I25.2 Old myocardial infarction; Z79.01 Long term (current) use of anticoagulants; Z79.82 Long term (current) use of aspirin; Z79.899 Other long term (current) drug therapy; Z85.820 Personal history of malignant melanoma of skin; Z87.891 Personal history of nicotine dependence; Z95.1 Presence of aortocoronary bypass graft; Z95.5 Presence of coronary angioplasty implant and graft; Z95.810 Presence of automatic (implantable) cardiac defibrillator; Z82.49 Family history of ischemic heart disease and other diseases of the circulatory system; Z88.5 Allergy status to narcotic agent; Z88.0 Allergy status to penicillin
CPT/HCPCS: 80048; 80053; 84132; 84443; 85025; 85610; 93306

== ENCOUNTER 2018-11-09 06:18 | Day surgery (SDC) | payer MEDICARE, BC ==
[2018-11-09] MEDS ORDERED: MIDAZOLAM 2 MG/2 ML VIAL IV PRN (06:35)
[2018-11-09] MEDS ORDERED: ONDANSETRON 4 MG/2 ML VIAL IVP ONE (06:35)
[2018-11-09] MEDS ORDERED: HYDROmorphone 0.5 MG/0.5 ML SYRINGE IVP PRN (06:35)
[2018-11-09] MEDS: SODIUM CHLORIDE 0.9% 1,000 ML IV SCH ×2 (07:26→23:27)
[2018-11-09] MEDS ORDERED: CLINDAMYCIN 600 MG in DEXTROSE 5% IN WATER 50 ML IVPB STA ×2 (07:28)
[2018-11-09 07:35] LABS: INR 1.3 (<1.2); Prothrombin Time 13.4 sec (9.0-12.0)
[2018-11-09] MEDS ORDERED: LIDOCAINE 1% INJ 10MG/ML (20 ML MDV) ONE ×2 (07:35→09:08)
[2018-11-09] MEDS ORDERED: fentaNYL (PF) 50 MCG/ML 2 ML AMP ONE (07:41)
[2018-11-09] MEDS ORDERED: PROTAMINE SULFATE 10 MG/ML 5 ML VIAL IV ONE (07:41)
[2018-11-09] MEDS ORDERED: diphenhydrAMINE 50 MG/ML 1 ML VIAL ONE (07:41)
[2018-11-09] MEDS ORDERED: PROPOFOL 10 MG/ML 20 ML VIAL IV ONE (07:41)
[2018-11-09] MEDS ORDERED: HEPARIN SODIUM,PORCINE 10,000 UNIT/ML 1 ML VIAL ONE (07:41)
[2018-11-09] MEDS ORDERED: WATER FOR INJECTION, STERILE 10 ML VIAL IV ONE (07:41)
[2018-11-09] MEDS ORDERED: ISOPROTERENOL 250 MCG/1.25 ML SYR IV ONE (07:41)
[2018-11-09] MEDS ORDERED: PHENYLEPHRINE-0.9% NACL SYG 1 MG/10 ML SYRINGE ONE (07:41)
[2018-11-09] MEDS ORDERED: MIDAZOLAM 2 MG/2 ML VIAL ONE (07:41)
[2018-11-09] MEDS ORDERED: FUROSEMIDE 10 MG/ML 2 ML VIAL ONE (07:41)
--- NOTE | 2018-11-09 07:45 | P.HPCAR ---
History of Present Illness This is Dr. Shafer dictating an admission note on this patient The patient was interviewed and examined by me IMPRESSION / ASSESSMENT: Sustained ventricular tachycardia with a right bundle branch block morphology with Q waves in the inferior leads and in V6, likely left ventricular origin with inferior apical exit Ischemic adenopathy status post biventricular ICD Chronic systolic heart failure EF 25-30%, stable heart failure Coronary artery disease status post coronary artery bypass grafting Hypertension Atrial fibrillation on Coumadin which is on hold, last INR 1.5 at home Hyperkalemia hence kristie inhibitors were on hold Patient is stable from a cardiovascular standpoint to proceed with conscious sedation or general anesthesia. No orthopnea PND no angina PLAN: Proceed with VT ablation under Ag/general anesthesia ICD, biventricular, interrogation and reprogramming prior to the procedure IV antibiotics IV heparin IV Lasix at the start of the study HPI Patient presented to the hospital recently with recurrent ventricular tachycardia requiring multiple ICD therapies His ventricular tachycardia presents with sweating spells He has not had any fever chills or rigors. He has a liver for cough with yellowish sputum but no fever. Lungs are clear this is a one-time episode only No hematuria or burning in the urine No orthopnea PND No palpitations No dizzy spells or syncope No sweating spells No angina ROS: No fever chills or rigors, + cough, phlegm or expectoration, one-time episode only no nausea, vomiting or diarrhea, no hematuria, dysuria, no musculoskeletal complaints, no strokes or seizures, no skin lesions. EXAMINATION: Afebrile 97.9F, pulse rate in the 70s, normal respirations, blood pressure 159/71 mmHg Oxygen saturation 98% on room air Patient looks comfortable sitting in bed Lungs are clear no rhonchi no crackles at all This systolic murmur at the apex consistent with mitral regurgitation no S3 gallop No JVD but of very mild hepatojugular reflux can be elicited Abdomen soft nontender Extremities are warm there is minimal ankle puffiness REVIEW OF LABS, ECG & MEDICAL DATA Severe LV dysfunction EF 25-30%, inferior and septal akinesis Moderate to severe mitral regurgitation RVSP 52 mmHg [employer] biventricular ICD in situ Physical Exam Vitals: Vital Signs Temp Pulse Resp BP Pulse Ox 11/09/18 07:23 97.9 F 70 18 159/71 98 Intake and Output 11/08/18 11/09/18 11/09/18 22:59 06:59 14:59 Intake Total 20 Balance 20 Intake: IV 20 Past Medical History Past Medical History: Atrial Fibrillation, Coronary Artery Disease (CAD), Cancer, Heart Failure, Diabetes Mellitus, GERD/Reflux, Hyperlipidemia, Hypertension, Myocardial Infarction (OK), Renal Disease, Skin Disorder, Syncope Additional Past Medical History / Comment(s): Melanoma on face, nose and left arm, CKD stage III, Borderline Diabetes. See Dr. Shafer's H&P. Last Myocardial Infarction Date:: 1998 History of Any Multi-Drug Resistant Organisms: None Reported Past Surgical History: Ablation, AICD, Cholecystectomy, Coronary Bypass/CABG, Heart Catheterization With Stent, Hernia Repair, Pacemaker Additional Past Surgical History / Comment(s): CABG with Dr. Rivera in 1998 Past Anesthesia/Blood Transfusion Reactions: No Reported Reaction Additional Past Anesthesia/Blood Transfusion Reaction / Comment(s): states throat was scratched with last intubation and had to stay another day in the hospital. Date of Last Stent Placement:: 1998 Type of Cardiac Device: AICD Device Placement Date:: 2017 Smoking Status: Former smoker - Past Family History Father History Unknown: Yes Family Medical History: Congestive Heart Failure (CHF), Coronary Artery Disease (CAD), Myocardial Infarction (OK) Mother History Unknown: Yes Family Medical History: Coronary Artery Disease (CAD), Skin Disorder Physical Examination Vital Signs Temp Pulse Resp BP Pulse Ox 11/09/18 07:23 97.9 F 70 18 159/71 98 Intake and Output 11/08/18 11/09/18 11/09/18 22:59 06:59 14:59 Intake Total 20 Balance 20 Intake: IV 20 Results Coagulation 11/09/18 Range/Units 06:50 PT 13.4 H (9.0-12.0) sec Current Medications Generic Name Dose Route Start Last Admin Trade Name Freq PRN Reason Stop Dose Admin Hydromorphone HCl 0.5 mg 11/09/18 06:35 Dilaudid IVP 11/10/18 06:36 Q5M PRN Pain Control Sodium Chloride 1,000 mls @ 20 mls/hr 11/09/18 06:35 11/09/18 07:26 Saline 0.9% IV 20 mls .Q24H PAIGE Administration Lactated Ringer's 1,000 mls @ 20 mls/hr 11/09/18 06:35 Lactated Ringers IV .Q24H PAIGE Clindamycin Phosphate 600 mg/ 54 mls @ 50 mls/hr 11/09/18 07:28 Dextrose/Water IVPB 11/09/18 08:32 ONCE STA Midazolam HCl 2 mg 11/09/18 06:35 Versed IV 11/10/18 06:36 ONCE PRN Anxiety Intake and Output 11/08/18 11/09/18 11/09/18 22:59 06:59 14:59 Intake Total 20 Balance 20 Intake: IV 20
[2018-11-09] MEDS ORDERED: LIDOCAINE 1% INJ 10MG/ML (20 ML MDV) SQ ONE (08:35)
[2018-11-09] MEDS ORDERED: HEPARIN SODIUM (1,000 UNIT/ML) 1,000 UNIT in SODIUM CHLORIDE 0.9% 1,000 ML IRRIGATION ONE (08:37)
[2018-11-09] MEDS ORDERED: HEPARIN SOD,PORK IN 0.45% NACL 25,000 UNIT in 0.45% NACL 1 250ML.BAG IV ONE (09:15)
[2018-11-09] MEDS ORDERED: LACTATED RINGERS 1,000 ML IV ONE (14:00)
[2018-11-09] MEDS ORDERED: IOPAMIDOL-370 50ML BTL INJ ONE (14:03)
[2018-11-09] MEDS ORDERED: ACETAMINOPHEN TAB 325 MG TAB PO PRN (14:06)
[2018-11-09 15:41] LABS: Glucose,Whole Blood 90 mg/dL (75-99)
[2018-11-09] MEDS ORDERED: ACYCLOVIR 200 MG CAP PO SCH (16:00)
[2018-11-09] MEDS ORDERED: ACETAMINOPHEN IV (For NPO) 1,000 MG in EMPTY BAG 1 BAG IVPB ONE (16:00)
[2018-11-09 17:00] VITALS: BMI 25.7
[2018-11-09] MEDS ORDERED: WARFARIN 1.25 MG TAB PO SCH (17:00)
[2018-11-09] MEDS: LACTATED RINGERS 1,000 ML IV SCH ×2 (17:55→23:27)
[2018-11-09] MEDS: FUROSEMIDE 20 MG TAB PO SCH (17:58)
[2018-11-09] MEDS: APIXABAN 5 MG TAB PO SCH (19:53)
[2018-11-09] MEDS: METOPROLOL TARTRATE 25 MG TAB PO SCH (19:53)
[2018-11-09] MEDS: ALLOPURINOL 100 MG TAB PO SCH (19:55)
[2018-11-09] MEDS ORDERED: ATORVASTATIN 10 MG TAB PO SCH (21:00)
--- NOTE | 2018-11-09 22:03 | PCN ---
PROCEDURE NOTE Mr. Maurice is a 78-year-old male patient who was admitted with recurrent ventricular tachycardia with underlying ischemic cardiomyopathy, congestive heart failure and an inferior and septal scar. He had multiple episodes of ventricular tachycardia that were refractory to antitachycardia pacing and required ICD shocks. He has a biventricular ICD, [employer], in situ. Initially he was treated with IV amiodarone, but he was brought back in for VT ablation. The patient was brought to the EP lab in a fasting state. Written informed consent was obtained prior to the procedure. He received IV antibiotics prior to the procedure. The [employer]mobile device was interrogated and reprogrammed to DDD mode and later to VVI at 40 beats per minute during mapping of the VT. Tachy therapies were turned off. Rate responsiveness was turned off. Rate smoothing was turned off. Two venous sheaths were placed in the left femoral vein and one venous sheath in the right femoral vein and one arterial sheath in the right femoral artery. The arterial sheath was a long 15-degree HeartSpan sheath. An RV catheter was placed for RV pacing. A deflectable decapolar catheter was placed. The RA and intracardiac echo catheter was placed. Three-D electroanatomic mapping was performed. There was no clot. Intracardiac echo was first performed. There was no thrombus in the left atrial appendage. Three-D anatomic mapping of the left ventricle was performed. The scar was clearly defined along the septum and the inferior wall on intracardiac echo, and the scar edges were tagged. Following that, a PentaRay catheter was placed in the left ventricle and a voltage map was created both during the underlying paced rhythm as well as during extrastimulation (decremental mapping). Once the map was created, the scar map and the decremental conduction velocity map were compared to identify the critical isthmi. The clinical VT exited septally along the inferior septal wall, somewhat apically, and the scar map as well as the decremental map showed the lateral to septal activation through the isthmi with more apical exit. RF ablation was performed in the area of the scar. Scar homogenization was performed. This was a very extensive area all along the inferior wall along the lateral edge of the scar as well as the septal edge of the scar and the base of the scar near the mitral anulus. The scar ablation was then connected to the mitral anulus to prevent . Following that, a full EP study was performed both on and off Isuprel with up to double extrastimuli at [address] trains from the right ventricle. No further episodes of VT could be induced. At the most, ventricular couplets were noted, but there was no nonsustained VT and no sustained VT could be induced despite a fairly aggressive protocol on high-dose Isuprel. Following this, the device was then reprogrammed. VT and VF therapies were turned back on. There was a monitor zone of 135 beats per minute, VT zone at 155 beats per minute and VF zone at 200 beats per minute. Appropriate antitachycardia pacing, cardioversion and defibrillation were programmed. Pacing was performed at DDDR at 60 to 130 bpm with dynamic AV delay. All sheaths were removed. Hemostasis was assured. The patient was transferred back to telemetry. He did receive multiple doses of IV Lasix through the procedure and he was able to tolerate this procedure well without any acute complications. This was a long procedure on account of the extent of the scar all along the inferior wall from the apex to the base and from the septum to the lateral wall. A detailed scar map was performed. A decremental functional conduction map was performed to identify critical isthmi. The patient tolerated the procedure well without any acute complications. MMODL / IJN: [id number] /
[2018-11-10] MEDS ORDERED: PANTOPRAZOLE 40 MG TABLET PO SCH (07:30)
--- NOTE | 2018-11-10 07:34 | P.PRLE ---
RE: Dat Maurice Dear Christopher Mr. Maurice underwent successful ablation for ventricular tachycardia. As you know he has had repeated episodes of ventricular tachycardia with multiple ICD therapies and shocks He underwent the procedure without any acute complications I was asked him to resume warfarin once again and as a bridge to use ELIQUIS 5 mg twice a day for 2 days only and then stop, since he had a substrate based sensitive ablation and left ventricle In addition I was asked him to reduce the dose of amiodarone to 200 mg by mouth daily for one month and then reduce it further 100 mg by mouth daily thereafter Mexiletine is being discontinued All other cardiac medications to continue unchanged and he will follow up with you and Dr. Galaviz as before Thank you for entrusting me with the care of the patient Warm regards Sincerely Peterson Shafer
--- NOTE | 2018-11-10 07:39 | P.DS ---
Providers Attending physician: Peterson Shafer Primary care physician: [facility] Course: Patient is doing well post VT ablation. He underwent substrate mapping with voltage mapping as well as decremental /functional mapping of the inferior septal scar. All isthmii were delineated and successfully ablated. Following that ventricular tachycardia or ventricular fibrillation could not be induced despite a fairly detailed VT stim protocol both on and off Isuprel This morning he is doing well he has no chest discomfort no dizziness lightheadedness palpitations. 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 Recurrent ventricular tachycardia Recurrent ICD shocks and therapies Status post successful VT ablation and patient was rendered noninducible Suggest Take ELIQUIS 5 mg twice daily for one day only as a bridge until INR becomes therapeutic on Coumadin Reduce amiodarone to 200 mg by mouth daily for one month and then reduce it further 200 mg daily thereafter Stop mexiletine line continue all other cardiac and cardio myopathy medications The patient may go home from a cardiac standpoint if he seems currently stable later this afternoon Plan - Discharge Summary Discharge Rx Participant: No New Discharge Prescriptions: New Amiodarone [Cordarone] 200 mg PO DAILY #90 tab Discontinued Amiodarone [Cordarone] 200 mg PO BID Mexiletine [Mexitil] 150 mg PO Q8HR No Action Loratadine [Claritin] 10 mg PO DAILY PRN PRN Reason: Allergy Symptoms Furosemide [Lasix] 20 mg PO BID Aspirin EC [Ecotrin Low Dose] 81 mg PO DAILY Allopurinol [Zyloprim] 100 mg PO BID Ubidecarenone [Coq-10] 100 mg PO DAILY Simvastatin [Zocor] 20 mg PO HS Lisinopril [Zestril] 5 mg PO DAILY Difluprednate [Durezol] 1 drop LEFT EYE Q48H Magnesium Citrate [Citrate of Magnesia] 296 ml PO DAILY PRN ml PRN Reason: Constipation Metoprolol Tartrate [Lopressor] 25 mg PO BID tab Pantoprazole [Protonix] 40 mg PO AC-BRKFST tablet. Acyclovir [Zovirax] 400 mg PO 1600 cap Warfarin [Coumadin] 1.25 mg PO DAILY #90 dose Allopurinol [Zyloprim] 100 mg PO BID Discharge Medication List Allopurinol [Zyloprim] 100 mg PO BID 11/25/13 [History] Aspirin EC [Ecotrin Low Dose] 81 mg PO DAILY 11/25/13 [History] Furosemide [Lasix] 20 mg PO BID 11/25/13 [History] Loratadine [Claritin] 10 mg PO DAILY PRN 11/25/13 [History] Ubidecarenone [Coq-10] 100 mg PO DAILY 11/25/13 [History] Difluprednate [Durezol] 1 drop LEFT EYE Q48H 10/28/18 [History] Lisinopril [Zestril] 5 mg PO DAILY 10/28/18 [History] Simvastatin [Zocor] 20 mg PO HS 10/28/18 [History] Acyclovir [Zovirax] 400 mg PO 1600 cap 10/31/18 [Rx] Magnesium Citrate [Citrate of Magnesia] 296 ml PO DAILY PRN ml 10/31/18 [Rx] Metoprolol Tartrate [Lopressor] 25 mg PO BID tab 10/31/18 [Rx] Pantoprazole [Protonix] 40 mg PO AC-BRKFST tablet. 10/31/18 [Rx] Warfarin [Coumadin] 1.25 mg PO DAILY #90 dose 10/31/18 [Rx] Allopurinol [Zyloprim] 100 mg PO BID 11/08/18 [History] Amiodarone [Cordarone] 200 mg PO DAILY #90 tab 11/09/18 [Rx] Follow up Appointment(s)/Referral(s): Zaheer Galaviz MD [STAFF PHYSICIAN] - 1 Week (Follow-up with Dr. Galaviz within 1-2 weeks) Activity/Diet/Wound Care/Special Instructions: Post EP study - Ablation instructions 1. Keep access sites dry for 2 days. 2. No heavy lifting or straining for 2 days. 3. Avoid bending the hips repeatedly for 2 days. 4. You may go up and down stairs slowly Call if the following is noted 1. Bleeding, increasing swelling or pain at the access sites. 2. Increasing chest discomfort, especially upon taking a deep breath. 3. Increasing shortness of breath, at rest or with exertion. 4. Undue cough / phlegm 5. Difficulty or pain while swallowing. 6. Pain or change in color in the extremities. 7. Fever, chills, rigors. 8. Increasing headache or neurologic symptoms. 9. Dizziness, fainting, palpitations Decrease amiodarone to 200 mg daily, stop maxiletine , continue all other medications including warfarin take ELIQUIS 5 mg twice daily for one day only until INR becomes therapeutic on warfarin Ambulate in the hallways with physical therapy Removed suture in left groin [employer] to interrogate the device today prior to discharge Patient may go home if hemodynamically stable and no bleeding in the groins by 3 PM today
[2018-11-10 08:30] VITALS: PULSE 59; RESP 17
[2018-11-10] MEDS ORDERED: NON-FORMULARY DRUG (Difluprednate [Durezol] 1 DROP) LEFT EYE SCH (09:00)
[2018-11-10] MEDS ORDERED: LISINOPRIL 5 MG TAB PO SCH (09:00)
[2018-11-10] MEDS ORDERED: AMIODARONE 200 MG TAB PO SCH (09:00)
[2018-11-10] MEDS ORDERED: ASPIRIN 81 MG PO SCH (09:00)
[2018-11-10] MEDS: METOPROLOL TARTRATE 25 MG TAB PO SCH (09:18)
[2018-11-10] MEDS: ALLOPURINOL 100 MG TAB PO SCH (09:18)
[2018-11-10] MEDS: FUROSEMIDE 20 MG TAB PO SCH (09:18)
[2018-11-10] MEDS: APIXABAN 5 MG TAB PO SCH (09:19)
[2018-11-10 12:16] VITALS: BP 103/58; TEMP 97.5
== END 2018-11-10 14:03 ==
LOC: CATHEP 06:18 → 1SOBS 14:45 → CATHEP 11-10 14:03
PROVIDERS: ATTEND Internal Medicine Clinical Cardiac Electrophysiology
DX: I47.1 Supraventricular tachycardia (principal); I45.10 Unspecified right bundle-branch block; I50.22 Chronic systolic (congestive) heart failure; E11.22 Type 2 diabetes mellitus with diabetic chronic kidney disease; E78.5 Hyperlipidemia, unspecified; E87.5 Hyperkalemia; I13.0 Hypertensive heart and chronic kidney disease with heart failure and stage 1 through stage 4 chronic kidney disease, or unspecified chronic kidney disease; I25.10 Atherosclerotic heart disease of native coronary artery without angina pectoris; M79.605 Pain in left leg; M79.604 Pain in right leg; I25.5 Ischemic cardiomyopathy; I48.91 Unspecified atrial fibrillation; K21.9 Gastro-esophageal reflux disease without esophagitis; N18.3 Chronic kidney disease, stage 3 (moderate); R07.89 Other chest pain; I25.2 Old myocardial infarction; Z79.01 Long term (current) use of anticoagulants; Z79.82 Long term (current) use of aspirin; Z85.820 Personal history of malignant melanoma of skin; Z87.891 Personal history of nicotine dependence; Z95.1 Presence of aortocoronary bypass graft; Z95.810 Presence of automatic (implantable) cardiac defibrillator; Z98.890 Other specified postprocedural states; Z82.49 Family history of ischemic heart disease and other diseases of the circulatory system
CPT/HCPCS: 85347; 93623; 93662; 93654; 85610; C1894; C1769 ×3; C1730; C1731; C1759; C1893; C1732; J2250; J2720; J1200; J1644 ×3; J1940; J2001; J3010; J2370; J2704; Q9967